=== PATIENT | female | born 1975 | race Caucasian/White ===

== ENCOUNTER 2017-12-06 17:17 | Emergency (ER) | payer SELFPAY ==
[~2017-12-06] VITALS: Ht 162.6 cm; Wt 84.0 kg
[2017-12-06 17:55] VITALS: BP 143/69; PULSE 84; RESP 16; TEMP 98.8; O2SAT 97
[2017-12-06] MEDS ORDERED: SODIUM CHLOR 0.9% 1000 ML INJ 1,000 ML IV SCH (20:07)
[2017-12-06] MEDS ORDERED: SODIUM CHLORIDE 0.9% FLUSH 10 ML FLUSH IV FLUSH PRN (20:15)
--- NOTE | 2017-12-06 20:19 | PD ---
HPI Chief Complaint: ENT Complaint Time Seen by Provider: 20:07 Travel History International Travel<30 days: No Contact w/Intl Traveler<30days: No Traveled to known affect area: No History of Present Illness HPI 42-year-old female presents to the emergency department with complaint of feeling like her throat closes up when she coughs or tries to clear her airway. Says her airway gets "totally blocked" and she cannot move air through her nose or her mouth. This occurred last night and then a few times today. She was seen on Monday for sore throat and is being treated currently with prednisone, Tessalon Perles, cough medicine with codeine. She was tested for influenza and strep which were both negative. She went to urgent care prior to the ER and was sent here for evaluation. Had fever of 100.1 on Monday, but no continued fevers. Denies airway edema, tongue edema. Shortness of breath is only with coughing and clearing her throat. Reports being able to drink and eat without regurgitation, coughing, choking. Reports productive cough. Has not taken any other medications to alleviate her symptoms. Has been drinking water because her throat feels dry. No primary care provider. Allergies to Keflex. Denies significant past medical history. Has no other medical complaints. No other modifying factors or associated signs and symptoms. [facility] Social History Tobacco Use: No Allergies-Medications (Allergen,Severity, Reaction): Coded Allergies: cephalexin (Verified Allergy, Intermediate, RASH, 12/06/17) Review of Systems Except as stated in HPI: all other systems reviewed are Neg Physical Exam Narrative GENERAL: Well-nourished, well-developed feet patient, in no acute distress; afebrile, nontoxic-appearing SKIN: Warm and dry. No rash. HEAD: Atraumatic. Normocephalic. EYES: Pupils equal and round. No scleral icterus. No injection or drainage. ENT: Mucosa pink and moist. No erythema or exudates. No uvular edema. No uvular , palatal, or tonsillar deviation. Airway patent. EARS: Bilateral pinnae and external canals appear within normal limits. Bilateral tympanic membranes without erythema, dullness or perforation. NECK: Trachea midline. No lymphadenopathy. CARDIOVASCULAR: Regular rate and rhythm. No murmur appreciated. RESPIRATORY: No accessory muscle use. Clear to auscultation. Breath sounds equal bilaterally. No retractions or tachypnea. Patient had cough during physical exam and patient's face turned red with minimal air movement and stridor noted. GASTROINTESTINAL: Abdomen soft, non-tender, nondistended. Hepatic and splenic margins not palpable. Bowel sounds are active 4 quadrants. MUSCULOSKELETAL: No obvious deformities. No clubbing. No cyanosis. No edema. NEUROLOGICAL: Awake and alert. Oriented 3. No obvious cranial nerve deficits. Motor grossly within normal limits. Normal speech. Moves all extremities. 5/5 strength to all extremities. PSYCHIATRIC: Appropriate mood and affect; insight and judgment normal. Data Data Last Documented VS Vital Signs Date Time Temp Pulse Resp B/P (MAP) Pulse Ox O2 Delivery O2 Flow Rate FiO2 12/06/17 17:55 98.8 84 16 143/69 (93) 97 Orders Orders Basic Metabolic Panel (Bmp) (12/06/17 20:07) Complete Blood Count With Diff (12/06/17 20:07) Iv Access Insert/Monitor (12/06/17 20:07) Sodium Chlor 0.9% 1000 Ml Inj (Ns 1000 M (12/06/17 20:07) Sodium Chloride 0.9% Flush (Ns Flush) (12/06/17 20:15) Ct Soft Tiss Neck W Iv Cont (12/06/17 ) MDM Medical Decision Making Medical Screen Exam Complete: Yes Emergency Medical Condition: Yes Medical Record Reviewed: Yes Differential Diagnosis Epiglottitis, pharyngitis, mass, fluid bolus, airway edema Narrative Course 42-year-old female with episode of her throat closing up during coughing and clearing of her throat only. She is being treated for sore throat with prednisone, Tessalon Perles, and cough medicine with codeine. Patient had an episode during physical exam and stridor was noted with minimal air movement. Patient moved to medical bed. Report given to Dr. Encarnacion. See his note for final patient disposition. CT soft tissue neck, CBC, BMP, IV, normal saline bolus ordered. Marlene Shepherd Dec 06, 2017 20:19
--- NOTE | 2017-12-06 20:31 | PD ---
Data Data Last Documented VS Vital Signs Date Time Temp Pulse Resp B/P (MAP) Pulse Ox O2 Delivery O2 Flow Rate FiO2 12/06/17 17:55 98.8 84 16 143/69 (93) 97 Orders Orders Basic Metabolic Panel (Bmp) (12/06/17 20:07) Complete Blood Count With Diff (12/06/17 20:07) Iv Access Insert/Monitor (12/06/17 20:07) Sodium Chlor 0.9% 1000 Ml Inj (Ns 1000 M (12/06/17 20:07) Sodium Chloride 0.9% Flush (Ns Flush) (12/06/17 20:15) Ct Soft Tiss Neck W Iv Cont (12/06/17 ) Soft Tissue Neck (12/06/17 ) Iohexol 350 Inj (Omnipaque 350 Inj) (12/06/17 22:47) Ed Discharge Order (12/06/17 23:41) Labs Laboratory Tests Test 12/06/17 20:50 White Blood Count 9.5 TH/MM3 Red Blood Count 4.66 MIL/MM3 Hemoglobin 14.1 GM/DL Hematocrit 41.8 % Mean Corpuscular Volume 89.6 FL Mean Corpuscular Hemoglobin 30.1 PG Mean Corpuscular Hemoglobin Concent 33.6 % Red Cell Distribution Width 13.4 % Platelet Count 256 TH/MM3 Mean Platelet Volume 8.9 FL Neutrophils (%) (Auto) 77.0 % Lymphocytes (%) (Auto) 13.0 % Monocytes (%) (Auto) 9.7 % Eosinophils (%) (Auto) 0.0 % Basophils (%) (Auto) 0.3 % Neutrophils # (Auto) 7.3 TH/MM3 Lymphocytes # (Auto) 1.2 TH/MM3 Monocytes # (Auto) 0.9 TH/MM3 Eosinophils # (Auto) 0.0 TH/MM3 Basophils # (Auto) 0.0 TH/MM3 CBC Comment DIFF FINAL Differential Comment Blood Urea Nitrogen 15 MG/DL Creatinine 0.94 MG/DL Random Glucose 90 MG/DL Calcium Level 9.1 MG/DL Sodium Level 138 MEQ/L Potassium Level 3.6 MEQ/L Chloride Level 106 MEQ/L Carbon Dioxide Level 21.3 MEQ/L Anion Gap 11 MEQ/L Estimat Glomerular Filtration Rate 65 ML/MIN MDM Supervised Visit with PAT: Yes Narrative Course Patient CARE assumed from Li DAY, is a 42-year-old female who is had some upper respiratory infection symptoms over the past few days, she is on steroids and a cough syrup containing codeine. She states that when she is coughing she is feeling like her airway is closing off for a few seconds causing a significant panic feeling and then resolves. She came in to the emergency department to be seen. No fevers. She has not been on any antibiotics. States this is never happened to her before. Ms. Gamboa reported to me as the patient had one of these episodes while she was initially evaluated the patient. She discussed with me and she has concerns for epiglottitis. After my examination of the patient I am less concerned she probably vaccinated she is not drooling she is not febrile. A lateral x-ray was shot and does not show any epiglottic inflammation, CT with IV contrast is also been ordered which shows a widely patent airway. At this time the patient is tolerating her own secretions she has not had any events since she was in the emergency department with me for about 2 hours. I discussed with her symptomatic management and return to ED criteria and when to call 911. She verbalized understanding and agreement. At this time she is stable for discharge and will follow up with an ear nose and throat doctor when she returns up [place] that she is currently visiting here on vacation. Diagnosis Primary Impression: Laryngeal spasm Referrals: Cole Hull MD Disposition: 01 DISCHARGE HOME Condition: Stable Arnoldo Encarnacion MD Dec 06, 2017 20:31
--- NOTE | 2017-12-06 21:03 | RADRPT ---
EXAM DATE/TIME: 12/06/2017 20:27 [facility] COMPARISON: No previous studies available for comparison. INDICATIONS : Is MEDICAL HISTORY : None. SURGICAL HISTORY : None. ENCOUNTER: Initial ACUITY: 2 days PAIN SCORE: 0/10 LOCATION: chest FINDINGS: Two view examination of the soft tissues of the neck demonstrates the hypopharyngeal airway to have a grossly normal configuration. The trachea is midline. No radiopaque foreign bodies are seen. CONCLUSION: Negative, direct visualization is suggested Carlo De La Torre MD FACR on December 06, 2017 at 21:00 Board Certified Radiologist. This report was verified electronically.
[2017-12-06 21:35] LABS: AUTOMATED NEUTROPHIL # 7.3 TH/MM3 (1.8-7.7); BASOPHIL % 0.3 % (0.0-2.0); HEMATOCRIT 41.8 % (35.0-46.0); HEMOGLOBIN 14.1 GM/DL (11.6-15.3); LYMPHOCYTE # 1.2 TH/MM3 (1.0-4.8); MEAN CELL VOLUME 89.6 FL (80.0-100.0); MEAN CORPUSCULAR HEMOGLOBIN 30.1 PG (27.0-34.0); MEAN CORPUSCULAR HGB CONC 33.6 % (32.0-36.0); MEAN PLATELET VOLUME 8.9 FL (7.0-11.0); MONO % 9.7 % (0.0-8.0); MONOCYTE # 0.9 TH/MM3 (0-0.9); PLATELET COUNT 256 TH/MM3 (150-450); RED BLOOD COUNT 4.66 MIL/MM3 (4.00-5.30); RED CELL DISTRIBUTION WIDTH 13.4 % (11.6-17.2); WHITE BLOOD COUNT 9.5 TH/MM3 (4.0-11.0)
[2017-12-06 21:44] LABS: BICARBONATE 21.3 MEQ/L (21.0-32.0); CALCIUM 9.1 MG/DL (8.5-10.1); CREATININE 0.94 MG/DL (0.50-1.00)
[2017-12-06] MEDS ORDERED: IOHEXOL 350 MG/ML 10 ML VIAL (for RAD DIAG) IVCONTRAST ONE (22:47)
--- NOTE | 2017-12-06 23:26 | RADRPT ---
EXAM DATE/TIME: 12/06/2017 22:37 [facility] COMPARISON: No previous studies available for comparison. INDICATIONS : Throat pain. IV CONTRAST: 80 cc Omnipaque 350 (iohexol) IV RADIATION DOSE: 17.00 CTDIvol (mGy) MEDICAL HISTORY : None SURGICAL HISTORY : None. ENCOUNTER: Initial ACUITY: 1 day PAIN SCALE: 5/10 LOCATION: Bilateral neck TECHNIQUE: Volumetric scanning of the neck was performed. Using automated exposure control and adjustment of th e mA and/or kV according to patient size, radiation dose was kept as low as reasonably achievable to obtain optimal diagnostic quality images. DICOM format image data is available electronically for r eview and comparison. FINDINGS: NASOPHARYNX: The nasopharyngeal airway has a normal configuration. No mucosal thickening or mass is seen. OROPHARYNX: The intrinsic muscles of the tongue are symmetric. The tonsillar pillars are intact. The prevertebr al soft tissues are not thickened. LARYNX: The supraglottic, glottic, and infraglottic structures are intact. PARAPHARYNGEAL: The parapharyngeal space is intact. SALIVARY GLANDS: The parotid and submandibular glands are intact. LYMPH NODES: No enlarged or necrotic-appearing nodes. THYROID: Homogeneous enhancement without evidence of nodule. BONES: No destructive bony changes. Layering fluid in the right lateral recess of the sphenoid sinus CONCLUSION: Acute sphenoid sinusitis. Rishi Hernandez MD on December 06, 2017 at 23:19 Board Certified Radiologist. This report was verified electronically.
== END 2017-12-06 23:59 | disposition home or self-care (01) ==
LOC: NEPE 17:17
DX: J38.5 Laryngeal spasm (principal)
CPT/HCPCS: 70360; 70491; 80048; 85025; 99285; J7030; Q9967